=== PATIENT | female | born 1975 | race African-American/Black ===

== ENCOUNTER 2018-06-10 14:26 | Emergency (ER) | payer SELFPAY ==
--- NOTE | 2018-06-10 14:33 | PDOC ---
Rapid Medical Evaluation Chief Complaint: Syncope/Near Syncope Time Seen by Provider: 06/10/18 14:31 Medical Evaluation: 06/10/18 14:31 I have performed a brief in-person evaluation of this patient. The patient presents with a chief complaint of dizziness and nausea x Sunday. Also reports feeling off balance and nausea. Reports no history of vertigo Pertinent physical exam findings NAD even and unlabored breathing heart s1s2 no pedal edema I have ordered the following ekg The patient will proceed to the ED for further evaluation.
[2018-06-10 14:34] VITALS: BP 107/67; TEMP 98.7; BMI 28.3
--- NOTE | 2018-06-10 14:57 | PDOC ---
History of Present Illness - General Chief Complaint: Syncope/Near Syncope Stated Complaint: LIGHT HEADED/OFF BALANCE Time Seen by Provider: 06/10/18 14:31 - History of Present Illness Initial Comments: 06/10/18 14:56 Ms. Cardona is a 42 yo female w/ no significant pmh who presents for evaluation of 3-4 day history of unsteady feeling with some nausea and unsteady feeling. Patient denies any other symptoms however presents as she continues to be "off balance." Patient also reports she has not had a bowel movement in 2 days. The patient denies chest pain, shortness of breath, and headache. Denies fever, chills, nausea, vomit, diarrhea and constipation. Denies dysuria, frequency, urgency and hematuria. Past History - Past Medical History Home Medications: Ambulatory Orders Meclizine HCl 25 mg PO TID PRN #10 tablet 06/10/18 - Suicide/Smoking/Psychosocial Hx Smoking History: Never smoked Have you smoked in the past 12 months: No Information on smoking cessation initiated: No Hx Alcohol Use: No Drug/Substance Use Hx: No Review of Systems - Review of Systems Comments:: 06/10/18 14:57 GENERAL/CONSTITUTIONAL: No fever or chills. No weakness. HEAD, EYES, EARS, NOSE AND THROAT: No change in vision. No ear pain or discharge. No sore throat. CARDIOVASCULAR: No chest pain or shortness of breath RESPIRATORY: No cough, wheezing, or hemoptysis. GASTROINTESTINAL: +Generalized abdominal TTP. No nausea, vomiting, or diarrhea. GENITOURINARY: No dysuria, frequency, or change in urination. MUSCULOSKELETAL: No joint or muscle swelling or pain. No neck or back pain. SKIN: No rash NEUROLOGIC: +"Off balance" feeling as described. No headache, loss of consciousness, or change in strength/sensation. ENDOCRINE: No increased thirst. No abnormal weight change HEMATOLOGIC/LYMPHATIC: No anemia, easy bleeding, or history of blood clots. ALLERGIC/IMMUNOLOGIC: No hives or skin allergy. *Physical Exam - Vital Signs Last Vital Signs Temp Pulse Resp BP Pulse Ox 98.7 F 107/67 100 06/10/18 14:31 06/10/18 14:31 06/10/18 14:31 - Physical Exam Comments: 06/10/18 14:57 GENERAL: Awake, alert, and fully oriented, in no acute distress HEAD: No signs of trauma, normocephalic, atraumatic EYES: PERRLA, EOMI, sclera anicteric, conjunctiva clear ENT: +Left EAC filled with wax requiring disimpaction. Right auricle normal inspection, hearing grossly normal, nares patent, oropharynx clear without exudates. Moist mucosa NECK: Normal ROM, supple, no lymphadenopathy, JVD, or masses LUNGS: No distress, speaks full sentences, clear to auscultation bilaterally HEART: Regular rate and rhythm, normal S1 and S2, no murmurs, rubs or gallops, peripheral pulses normal and equal bilaterally. ABDOMEN: +Minimal generalized TTP. Full feeling. Nontender, normoactive bowel sounds. No guarding, no rebound. No masses EXTREMITIES: Normal inspection, Normal range of motion, no edema. No clubbing or cyanosis. NEUROLOGICAL: Cranial nerves II through XII grossly intact. Normal speech, normal gait, no focal sensorimotor deficits SKIN: Warm, Dry, normal turgor, no rashes or lesions noted. Moderate Sedation - Procedure Monitoring Vital Signs: Procedure Monitoring Vital Signs Temperature 98.7 F 06/10/18 14:31 Pulse Rate Respiratory Rate Blood Pressure 107/67 06/10/18 14:31 O2 Sat by Pulse Oximetry (%) 100 06/10/18 14:31 Medical Decision Making - Medical Decision Making 06/10/18 15:47 Ms. Cardona is a 42 yo female w/ pmh as described who presents for evaluation of symptoms concerning for vertigo vs. cerumen impaction vs. alternate neurological causes. Patient evaluation significant for significant L ear cerumen impaction. Cerumen removed with significant improvement of symptoms. Believe this to be cause of symptoms at this time. Patient given neurological follow-up for further as needed use. Temporary meclizine Rx likewise sent to patient's pharmacy. No concern for acute process at this time given negative neurological evaluation. Discharging to home. *DC/Admit/Observation/Transfer Diagnosis at time of Disposition: Impacted cerumen of left ear - Discharge Dispostion Disposition: HOME - Prescriptions Prescriptions: Meclizine HCl 25 mg PO TID PRN #10 tablet PRN Reason: Vertigo - Referrals Referrals: Michael Simon MD [Staff Physician] - Ruben Arriaga MD [Staff Physician] - Janes Nguyen MD [Staff Physician] - - Patient Instructions Printed Discharge Instructions: DI for Cerumen Impaction Additional Instructions: You were evaluated today in the ER and found to have a significant Left ear wax accumulation. You reported symptoms improved following removal of ear wax. We have likewise sent a prescription to your pharmacy for further relief as needed. Please follow-up with neurology as soon as possible for further evaluation - we have provided you with several neurology options you may use. Return to ER if any exacerbation of symptoms, fever, chills, altered mental status, or other concerning findings. - Post Discharge Activity
--- NOTE | 2018-06-10 14:59 | PDOC ---
Attending Attestation - Resident Resident Name: DelvisroryHank latham - ED Attending Attestation I have performed the following: I have examined & evaluated the patient, The case was reviewed & discussed with the resident, I agree w/resident's findings & plan - HPI HPI: 06/10/18 16:03 The patient is a 42 year old female, with no past medical history, who presents today with 2-3 days of ear fullness, dizziness/vertigo and gait imbalance. no fever, andersen, visual or hearing changes, weakness or paresthesias. no cp or sob. +recent viral illness ~several weeks ago with work exposure and children. no falls or trauma. no fam history of cardiac disease or CVA. 06/10/18 16:07 - Physicial Exam PE: 06/10/18 16:02 NAD, well appearing Alert, oriented to person time and place. EOMI, PERRL, no nystagmus. CN II-XII grossly intact. Strength prox and distally 5/5 throughout. Sensation grossly intact to light touch. FOX x4. No cerebellar signs, no dysmetria, bilateral finger to nose and heel to chris equal and symmetric. Speech clear. gait stable. RRR, lungs clear, abdomen soft nontender. WWP, no edema. 06/10/18 16:03 06/10/18 16:09 - Medical Decision Making 06/10/18 14:58 See HPI for details ddx labrynthitis, viral syndrome, cerumen impaction, peripheral vertigo. doubt central vertigo, normal neuro exam including cerebellar exam. also 3 days history of sx, and left ear fullness, recent viral illness - this is likely peripheral etiology and treat as such Vital signs reviewed, wnl. EKG normal sinus rhythm, no interval abnormalities, narrow QRS, ST and T wave segments and morphology normal. Nonspecific T wave abnormality in AVL no e/o ischemia. ED course: no acute events. \ neurology followup prn meclizine for vertigo sx. strict return precautions for worsening neuro condition such as focal changes/ AMS, gait instability, balance issues, persistent sx or pain/headache. - Pt to be discharged in stable condition. Patient and family made aware of impression and plan, return precautions discussed (including but not limited to worsening pain or symptoms), fevers, or signs of infection, chest pain, respiratory distress, inability to tolerate oral intake, dehydration, syncope, or neurologic changes). Follow up with PMD and/or specialist as recommended, follow up information provided, take medications as instructed for duration of time. continue with supportive care, avoid triggers and precipitants. All questions answered to patient's satisfaction and expressed understanding and comfort with this. Patient does not suffer from an acute life-threatening medical condition at this time she is safe for outpatient follow-up. 06/10/18 16:07 06/10/18 16:09 Heart Score/ECG Review #1 ECG reviewed & interpreted by me at: 14:45 General ECG Interpretation: Sinus Rhythm Compared to previous ECG there are: Previous ECG unavail 06/10/18 14:59 EKG normal sinus rhythm at 72 bpm, no interval abnormalities, narrow QRS, ST and T wave segments and morphology normal. Nonspecific T wave abnormality in AVL - non contiguous lead changes
--- NOTE | 2018-06-11 17:16 | EKG ---
Test Reason : Blood Pressure : / mmHG Vent. Rate : 072 BPM Atrial Rate : 072 BPM P-R Int : 160 ms QRS Dur : 088 ms QT Int : 376 ms P-R-T Axes : 070 071 071 degrees QTc Int : 411 ms NORMAL SINUS RHYTHM NORMAL ECG NO PREVIOUS ECGS AVAILABLE Confirmed by MD KATHERIN, JANICE ([id number]) on 06/11/2018 5:16:37 PM Referred By: Confirmed By:JANICE PANDEY MD
== END 2018-06-10 16:00 | disposition home or self-care (01) ==
LOC: JER 14:26
PROC: 3E1B78Z Irrigation of Ear using Irrigating Substance, Via Natural or Artificial Opening (ICD-10-PCS; principal; 2018-06-10)
PROC: 3E1B78Z Irrigation of Ear using Irrigating Substance, Via Natural or Artificial Opening (ICD-10-PCS; 2018-06-10)
DX: H61.23 Impacted cerumen, bilateral (principal)
CPT/HCPCS: 93005; 93010; 99281-25